=== PATIENT | female | born 1970 | race Two or more races ===

== ENCOUNTER 2017-08-04 08:08 | Emergency (ER) | payer MEDICAID ==
[~2017-08-04] VITALS: Ht 154.9 cm; Wt 106.1 kg
[2017-08-04 08:52] VITALS: BP 102/60
[2017-08-04] MEDS ORDERED: SILVER SULFADIAZINE 1 % TOPICAL CREAM 50GM TOP ONE (09:45)
[2017-08-04] MEDS ORDERED: IBUPROFEN 800 MG TAB PO ONE (09:45)
== END 2017-08-04 10:03 | disposition home or self-care (01) ==
LOC: ER 08:08
DX: T25.132A Burn of first degree of left toe(s) (nail), initial encounter (principal); T25.131A Burn of first degree of right toe(s) (nail), initial encounter; E11.9 Type 2 diabetes mellitus without complications; I10 Essential (primary) hypertension; E07.9 Disorder of thyroid, unspecified; X12.XXXA Contact with other hot fluids, initial encounter; Y93.89 Activity, other specified; Y92.89 Other specified places as the place of occurrence of the external cause; Y99.8 Other external cause status
CPT/HCPCS: 16000

== ENCOUNTER 2020-12-28 17:03 | Inpatient (IN) | payer MEDICAID ==
[~2020-12-28] VITALS: Ht 165.1 cm; Wt 158.6 kg
[2020-12-28] MEDS ORDERED: PROPOFOL 100 ML IV ONE (17:16)
[2020-12-28] MEDS ORDERED: PROPOFOL 100 ML IV SCH (17:30)
[2020-12-28 17:52] LABS: Urine Bacteria NONE SEEN /hpf (None Seen); Urine Blood Negative /uL (Negative); Urine Mucus FEW (None Seen); Urine Specific Gravity 1.029 (1.001-1.035); Urine WBC 2 /hpf (0 - 5)
[2020-12-28 18:08] LABS: Alcohol, Urine < 3.0 mg/dL (0-10); Amphetamine Screen, Urine NEGATIVE (NEGATIVE); Barbiturate Scree,Urine NEGATIVE (NEGATIVE); Benzodiazephine Screen, Urine NEGATIVE (NEGATIVE); Cannabinoid Screen, Urine NEGATIVE (NEGATIVE); Opiate Scree,Urine POSITIVE (NEGATIVE); Phencyclidine Screen, Urine NEGATIVE (NEGATIVE)
[2020-12-28 18:12] LABS: Eosinophils # (auto) 0 10 ^3/uL (0-0.8); Monocytes # (auto) 0.3 10 ^3/uL (0-1.3); Red Blood Cells 4.19 10^6/uL (4.0-5.20)
[2020-12-28 18:14] LABS: Basophils # (auto) 0.1 10 ^3/uL (0-0.2); Basophils % (auto) 0.8 % (0.0-2.0); Eosinophils % (auto) 0.2 % (0.0-7.0); Hematocrit 30.4 % (36.0-46.0); Hemoglobin 9.3 g/dL (12.2-16.2); Lymphocytes % (auto) 14.6 % (10.0-50.0); Mean Corpuscular Hemoglobin 22.3 pg (28.0-32.0); Mean Corpuscular Hgb Conc. 30.8 g/dL (32.0-36.0); Mean Corpuscular Volume 72.4 fL (80.0-100.0); Monocytes % (auto) 4.9 % (0.0-12.0); Neutrophils # (auto) 5.2 10 ^3/uL (1.6-8.6); Neutrophils % (auto) 79.5 % (37.0-80.0); Red Cell Distribution Width 17.3 % (11.8-14.3); White Blood Cell 6.6 10^3/uL (4.4-10.8)
[2020-12-28] MEDS ORDERED: NOREPINEPHRINE 8 MG/250ML KIT 250 ML IV SCH (18:15)
[2020-12-28 18:16] LABS: Cocaine Screen, Urine NEGATIVE (NEGATIVE)
[2020-12-28 18:25] LABS: Alanine Aminotransferase 19 U/L (13-56); Albumin 3.4 g/dL (3.4-5.0); Anion Gap 7 (5-15); Aspartate Aminotransferase 18 U/L (15-37); BUN/Creatinine Ratio 28.9; Blood Alcohol < 3.0 mg/dL (0-5); Blood Urea Nitrogen 13 mg/dL (7-18); Calcium 7.4 mg/dL (8.5-10.1); Carbon Dioxide 23 mmol/L (21-32); Chloride 109 mmol/L (98-107); GFR African American 190 mL/min; GFR Non-African American 157 mL/min; Glucose 131 mg/dL (74-106); Magnesium 1.8 mg/dL (1.6-2.6); Potassium 3.9 mmol/L (3.5-5.1); Sodium 139 mmol/L (136-145)
[2020-12-28 18:28] LABS: Alkaline Phosphatase 107 U/L (45-117); Bilirubin, Total 0.3 mg/dL (0.2-1.0); Total Protein 6.5 g/dL (6.4-8.2)
[2020-12-28 18:39] LABS: Salicylate < 1.7 mg/dL (2.8-20.0)
[2020-12-28 18:55] LABS: Acetaminophen 44.5 ug/mL (10-30)
[2020-12-28] MEDS: MIDAZOLAM DRIP 50 mg/50mL 50 ML IV SCH (19:07)
[2020-12-28] MEDS ORDERED: ETOMIDATE (2MG/ML) 20ML VIAL IV ONE (20:15)
[2020-12-28] MEDS ORDERED: SUCCINYLCHOLINE CHLORIDE 20 MG/ML 10ML VIAL IV ONE (20:15)
[2020-12-28 21:44] VITALS: BP 122/76
[2020-12-28] MEDS ORDERED: ACETYLCYSTEINE PO FOR APAP TOX 200 MG/ML ML PO ONE (22:30)
[2020-12-28 23:15] VITALS: BP 122/76
[2020-12-28] MEDS ORDERED: MORPHINE SULF INJ 2 MG/ML SYRINGE 1ML IV PRN (23:15)
[2020-12-28] MEDS ORDERED: ONDANSETRON HCL 4 MG/2 ML VIAL IV PRN (23:15)
[2020-12-28] MEDS ORDERED: SODIUM CHLORIDE 0.9% 2,000 ML IV ONE (23:15)
[2020-12-28] MEDS ORDERED: DEXTROSE (50%) 50ML SYRG IV PRN (23:15)
[2020-12-28] MEDS ORDERED: ACETYLCYSTEINE 200MG/ML IV SOL 15,000 MG in D5W 5% 250 ML IV ONE (23:15)
[2020-12-28] MEDS ORDERED: NITROGLYCERIN 0.4 MG SL TAB SL PRN (23:15)
[2020-12-29] VITALS (8 sets, daily range): BP systolic 109–159; BP diastolic 68–83
[2020-12-29 00:12] LABS: INR 0.98 (0.9-1.15)
[2020-12-29 00:15] LABS: Albumin 3.2 g/dL (3.4-5.0); BUN/Creatinine Ratio 23.9; Calcium 7.6 mg/dL (8.5-10.1); Potassium 3.5 mmol/L (3.5-5.1)
[2020-12-29 00:17] LABS: Bilirubin, Total 0.3 mg/dL (0.2-1.0); Total Protein 6.4 g/dL (6.4-8.2)
[2020-12-29] MEDS ORDERED: ACETYLCYSTEINE PO FOR APAP TOX 200 MG/ML ML ONE (00:28)
[2020-12-29] MEDS ORDERED: ACETYLCYSTEINE 6GM/30ml (200mg/ml) IV SOLN 30ML IV ONE (00:52)
[2020-12-29] MEDS ORDERED: ACETYLCYSTEINE 200MG/ML IV SOL 5,000 MG in D5W 5% 500 ML IV ONE (02:00)
[2020-12-29 02:16] LABS: Magnesium 1.9 mg/dL (1.6-2.6)
[2020-12-29] MEDS ORDERED: ACETYLCYSTEINE 200MG/ML IV SOL 10,000 MG in D5W 5% 1,000 ML IV ONE (06:00)
[2020-12-29] MEDS: InsuLIN REG 1unit/0.01ml Soln (100units/ml) SC SCH ×4 (06:00→17:09)
[2020-12-29] MEDS: ACCU-CHEK COMFORT CURVE STRIP VI SCH ×4 (06:11→17:09)
[2020-12-29 06:16] LABS: INR 1.03 (0.9-1.15)
[2020-12-29 06:31] LABS: Albumin 2.4 g/dL (3.4-5.0); Anion Gap 9 (5-15); Blood Urea Nitrogen 8 mg/dL (7-18); Calcium 7.1 mg/dL (8.5-10.1); Carbon Dioxide 26 mmol/L (21-32); Chloride 108 mmol/L (98-107); Glucose 185 mg/dL (74-106); Potassium 3.3 mmol/L (3.5-5.1); Sodium 143 mmol/L (136-145)
[2020-12-29 06:39] LABS: Alanine Aminotransferase 26 U/L (13-56); Alkaline Phosphatase 82 U/L (45-117); Aspartate Aminotransferase 14 U/L (15-37); Bilirubin, Total 0.3 mg/dL (0.2-1.0); GFR African American 206 mL/min; GFR Non-African American 170 mL/min; Total Protein 5.6 g/dL (6.4-8.2)
[2020-12-29 07:16] LABS: Basophils # (auto) 0.1 10 ^3/uL (0-0.2); Basophils % (auto) 0.8 % (0.0-2.0); Eosinophils # (auto) 0.1 10 ^3/uL (0-0.8); Eosinophils % (auto) 0.7 % (0.0-7.0); Hematocrit 29.9 % (36.0-46.0); Hemoglobin 9.4 g/dL (12.2-16.2); Lymphocytes # (auto) 2.7 10 ^3/uL (0.4-5.4); Lymphocytes % (auto) 26.6 % (10.0-50.0); Mean Corpuscular Hemoglobin 22.4 pg (28.0-32.0); Mean Corpuscular Hgb Conc. 31.4 g/dL (32.0-36.0); Mean Corpuscular Volume 71.4 fL (80.0-100.0); Monocytes # (auto) 1.1 10 ^3/uL (0-1.3); Monocytes % (auto) 10.6 % (0.0-12.0); Neutrophils # (auto) 6.2 10 ^3/uL (1.6-8.6); Neutrophils % (auto) 61.3 % (37.0-80.0); Nucleated Red Blood Cells % 0.1 %; Red Blood Cells 4.18 10^6/uL (4.0-5.20); White Blood Cell 10.1 10^3/uL (4.4-10.8)
[2020-12-29] MEDS ORDERED: ATOR20TA50 PO (09:48)
[2020-12-29] MEDS ORDERED: CETI-120 PO (09:48)
[2020-12-29] MEDS ORDERED: METF-869 PO (09:48)
[2020-12-29] MEDS: PANTOPRAZOLE 40 MG/10 ML VIAL INJ IV SCH (09:51)
[2020-12-29] MEDS: MIDAZOLAM DRIP 50 mg/50mL 50 ML IV SCH (09:54)
[2020-12-29] MEDS ORDERED: ENOXAPARIN SOD 40 MG/0.4 ML SYRINGE SC SCH ×2 (10:00→22:00)
[2020-12-29] MEDS ORDERED: LEVO50TA7 PO (10:04)
[2020-12-29] MEDS ORDERED: LISI2.5T47 PO (10:04)
[2020-12-29] MEDS: D5W/SOD CHL 0.45% 1,000 ML IV SCH (17:04)
[2020-12-30] MEDS: ACCU-CHEK COMFORT CURVE STRIP VI SCH ×5 (01:00→23:51)
[2020-12-30] MEDS: InsuLIN REG 1unit/0.01ml Soln (100units/ml) SC SCH ×5 (01:00→23:51)
[2020-12-30] MEDS: D5W/SOD CHL 0.45% 1,000 ML IV SCH ×3 (03:45→21:36)
[2020-12-30] MEDS: LEVOTHYROXINE SODIUM 50 MCG TAB PO SCH (07:35)
[2020-12-30 07:40] LABS: Basophils # (auto) 0.1 10 ^3/uL (0-0.2); Eosinophils # (auto) 0.1 10 ^3/uL (0-0.8); Lymphocytes # (auto) 1.8 10 ^3/uL (0.4-5.4); Lymphocytes % (auto) 21.3 % (10.0-50.0); Mean Corpuscular Volume 71.9 fL (80.0-100.0); Monocytes # (auto) 0.6 10 ^3/uL (0-1.3); Neutrophils # (auto) 5.8 10 ^3/uL (1.6-8.6); White Blood Cell 8.4 10^3/uL (4.4-10.8)
[2020-12-30 07:42] LABS: Basophils % (auto) 0.7 % (0.0-2.0); Eosinophils % (auto) 1.1 % (0.0-7.0); Hematocrit 28.1 % (36.0-46.0); Mean Corpuscular Hemoglobin 22.9 pg (28.0-32.0); Mean Corpuscular Hgb Conc. 31.9 g/dL (32.0-36.0); Monocytes % (auto) 7.7 % (0.0-12.0); Neutrophils % (auto) 69.2 % (37.0-80.0); Red Blood Cells 3.91 10^6/uL (4.0-5.20); Red Cell Distribution Width 16.7 % (11.8-14.3)
[2020-12-30 07:46] LABS: INR 1.01 (0.9-1.15); Partial Thromboplastin Time 25.7 sec (23.6-33.0)
[2020-12-30 07:50] LABS: Albumin 2.4 g/dL (3.4-5.0); Calcium 7.6 mg/dL (8.5-10.1); Potassium 3.1 mmol/L (3.5-5.1)
[2020-12-30 07:54] LABS: BUN/Creatinine Ratio 9.5; Bilirubin, Total 0.5 mg/dL (0.2-1.0); Total Protein 5.9 g/dL (6.4-8.2)
[2020-12-30 09:00] VITALS: BP 109/59
[2020-12-30] MEDS: PANTOPRAZOLE 40 MG/10 ML VIAL INJ IV SCH (10:25)
[2020-12-30] MEDS: ENOXAPARIN SOD 40 MG/0.4 ML SYRINGE SC SCH (10:27)
[2020-12-30] MEDS ORDERED: POTASSIUM CHL 20 Meq TABLET PO ONE (12:30)
[2020-12-30 13:00] VITALS: BP 107/64
[2020-12-30] MEDS: IBUPROFEN 600 MG TAB PO PRN (14:58)
[2020-12-30 17:00] VITALS: BP 109/61
[2020-12-30 20:00] VITALS: BP 107/64
[2020-12-30] MEDS: ATORVASTATIN 20 MG TAB PO SCH (21:37)
[2020-12-30 22:00] VITALS: BP 107/64
[2020-12-31 05:00] VITALS: BP 104/62
[2020-12-31] MEDS: IBUPROFEN 600 MG TAB PO PRN ×2 (05:46→22:31)
[2020-12-31] MEDS: ACCU-CHEK COMFORT CURVE STRIP VI SCH ×3 (05:47→18:15)
[2020-12-31] MEDS: InsuLIN REG 1unit/0.01ml Soln (100units/ml) SC SCH ×3 (05:47→18:00)
[2020-12-31] MEDS: LEVOTHYROXINE SODIUM 50 MCG TAB PO SCH (06:17)
[2020-12-31] MEDS: D5W/SOD CHL 0.45% 1,000 ML IV SCH ×2 (06:47→18:19)
[2020-12-31 09:00] VITALS: BP 113/75
[2020-12-31] MEDS: PANTOPRAZOLE 40 MG/10 ML VIAL INJ IV SCH (10:56)
[2020-12-31] MEDS: FLUoxetine HCL 10 MG CAP PO SCH (10:57)
[2020-12-31] MEDS: ENOXAPARIN SOD 40 MG/0.4 ML SYRINGE SC SCH (10:57)
[2020-12-31 13:00] VITALS: BP 124/70
[2020-12-31] MEDS: GABAPENTIN 100 MG CAP PO SCH ×2 (14:45→22:29)
[2020-12-31 17:00] VITALS: BP 141/90
[2020-12-31 20:00] VITALS: BP 115/68
[2020-12-31] MEDS: ATORVASTATIN 20 MG TAB PO SCH (22:29)
[2021-01-01] MEDS: ACCU-CHEK COMFORT CURVE STRIP VI SCH ×5 (00:12→22:00)
[2021-01-01] MEDS: D5W/SOD CHL 0.45% 1,000 ML IV SCH (03:59)
[2021-01-01] MEDS: InsuLIN REG 1unit/0.01ml Soln (100units/ml) SC SCH ×5 (06:00→22:00)
[2021-01-01] MEDS: GABAPENTIN 100 MG CAP PO SCH ×3 (06:30→22:00)
[2021-01-01] MEDS: LEVOTHYROXINE SODIUM 50 MCG TAB PO SCH (06:31)
[2021-01-01 08:00] VITALS: BP 102/61
[2021-01-01] MEDS: PANTOPRAZOLE 40 MG/10 ML VIAL INJ IV SCH (08:57)
[2021-01-01] MEDS: FLUoxetine HCL 10 MG CAP PO SCH (08:57)
[2021-01-01] MEDS: ENOXAPARIN SOD 40 MG/0.4 ML SYRINGE SC SCH (08:58)
[2021-01-01 09:00] VITALS: BP 102/61
[2021-01-01] MEDS ORDERED: DEXTROSE (50%) 50ML SYRG IV PRN (11:00)
[2021-01-01 13:00] VITALS: BP 127/77
[2021-01-01 17:00] VITALS: BP 108/68
[2021-01-01 22:00] VITALS: BP 110/63
[2021-01-01] MEDS: ATORVASTATIN 20 MG TAB PO SCH (22:00)
[2021-01-02 05:30] VITALS: BP 110/65
[2021-01-02] MEDS: GABAPENTIN 100 MG CAP PO SCH ×2 (06:58→13:54)
[2021-01-02] MEDS: InsuLIN REG 1unit/0.01ml Soln (100units/ml) SC SCH ×3 (07:00→17:00)
[2021-01-02] MEDS: LEVOTHYROXINE SODIUM 50 MCG TAB PO SCH (07:03)
[2021-01-02] MEDS: ACCU-CHEK COMFORT CURVE STRIP VI SCH ×3 (07:03→17:00)
[2021-01-02] MEDS: PANTOPRAZOLE 40 MG/10 ML VIAL INJ IV SCH (08:36)
[2021-01-02] MEDS: ENOXAPARIN SOD 40 MG/0.4 ML SYRINGE SC SCH (08:36)
[2021-01-02] MEDS: FLUoxetine HCL 10 MG CAP PO SCH (08:36)
[2021-01-02 09:00] VITALS: BP 107/61
[2021-01-02 17:00] VITALS: BP 118/76
[2021-01-02] MEDS ORDERED: FLUO1TAB14 PO (18:43)
[2021-01-02] MEDS ORDERED: GABA100C9 PO (18:43)
== END 2021-01-02 20:35 | disposition home or self-care (01) | DRG 812 ==
LOC: EDBD 17:03 → ER 17:03 → TELE 23:28 → TELE-WESTW 12-30 08:11 → WEST WING 12-31 09:01
PROVIDERS: ADMIT Hospitalist; ATTEND Hospitalist
PROC: 5A1935Z Respiratory Ventilation, Less than 24 Consecutive Hours (ICD-10-PCS; principal; 2020-12-28)
PROC: 0BH17EZ Insertion of Endotracheal Airway into Trachea, Via Natural or Artificial Opening (ICD-10-PCS; 2020-12-28)
DX: T50.904A Poisoning by unspecified drugs, medicaments and biological substances, undetermined, initial encounter (principal); J96.01 Acute respiratory failure with hypoxia; T39.1X2A Poisoning by 4-Aminophenol derivatives, intentional self-harm, initial encounter; I10 Essential (primary) hypertension; E11.9 Type 2 diabetes mellitus without complications; Z20.822 Contact with and (suspected) exposure to COVID-19; E66.2 Morbid (severe) obesity with alveolar hypoventilation; G89.4 Chronic pain syndrome; J98.11 Atelectasis; T39.1X1A Poisoning by 4-Aminophenol derivatives, accidental (unintentional), initial encounter; Z79.899 Other long term (current) drug therapy; Z83.3 Family history of diabetes mellitus; Z79.891 Long term (current) use of opiate analgesic; Z79.01 Long term (current) use of anticoagulants; Z56.0 Unemployment, unspecified
CPT/HCPCS: 31500; 36415; 36556; 36600; 70450; 71045; 80053; 80307; 80320; 80329; 81001; 81025; 82550; 82805; 82962; 83605; 83735; 84439; 84443; 84484; 85025; 85610; 85730; 87070; 87205; 87426; 93005; 93306; 94002; 94003; 96361; 96365; 96366; 96367; 96375; 99291; A4618; C9113; G0378; J1815; J2250; J2704; J7042; J7060

== ENCOUNTER → 2023-07-12 | Outpatient (CLI) | payer MEDICAID ==
[~2023-07-12] MED LIST: ATOR20TA50 PO; CETI-120 PO; FLUO1TAB14 PO; GABA-1308 PO; LEVO50TA7 PO; LISI2.5T47 PO; METF-869 PO
== END | disposition home or self-care (01) ==
LOC: Rad HDHVI 14:32
PROVIDERS: ATTEND Internal Medicine Cardiovascular Disease
DX: Z01.818 Encounter for other preprocedural examination (principal); I51.7 Cardiomegaly
CPT/HCPCS: 93306

== ENCOUNTER → 2023-07-18 | Outpatient (CLI) | payer MEDICAID ==
[~2023-07-18] VITALS: Ht 154.9 cm; Wt 113.4 kg
[~2023-07-18] MED LIST changes: +ADENOSINE 90 MG/30 ML INJ IV ONE; +ADENOSINE 95 MG in GIVE UN-DILUTED 0 ML IV ONE
== END | disposition home or self-care (01) ==
LOC: Rad HDHVI 08:04
PROVIDERS: ATTEND Internal Medicine Cardiovascular Disease
DX: Z01.810 Encounter for preprocedural cardiovascular examination (principal); I10 Essential (primary) hypertension; E11.9 Type 2 diabetes mellitus without complications; E78.00 Pure hypercholesterolemia, unspecified; Z79.84 Long term (current) use of oral hypoglycemic drugs; Z79.899 Other long term (current) drug therapy
CPT/HCPCS: 78452; 93005; 96374; 96375; A9500; J0153

== ENCOUNTER 2024-12-30 17:42 | Emergency (ER) | payer MEDICAID ==
[~2024-12-30] VITALS: Ht 154.9 cm; Wt 105.0 kg
[~2024-12-30 17:42] MED LIST changes: -ADENOSINE 90 MG/30 ML INJ IV ONE; -ADENOSINE 95 MG in GIVE UN-DILUTED 0 ML IV ONE
[2024-12-30 17:47] VITALS: TEMP 98.3
[2024-12-30 18:45] VITALS: BP 130/80; PULSE 67; RESP 18; O2SAT 96
[2024-12-30] MEDS ORDERED: ACET500T58 PO (18:58)
--- NOTE | 2024-12-30 18:58 | ED.PDOC ---
Musculoskeletal HPI Comments 54 year old female presents to ER with complaints of right foot pain x two days. Patient reports 9/10 right foot pain s/p accidentally hitting her right foot against the corner of a door 2 days ago. Denies use of medications for current symptoms and presents to ER ambulatory on arrival, with steady gait, in no distress. Denies numbness/tingling, right ankle pain, skin changes or any further symptoms/complaints Chief Complaint: Lower Extremity Time Seen by MD: 18:23 Primary Care Provider: DELROY Reviewed Notes: Nurses Notes, Medications, Allergies Allergies: Coded Allergies: NO KNOWN ALLERGIES (Unverified , 12/22/15) Home Meds Active Scripts Acetaminophen (Acetaminophen) 500 Mg Tab, 500 MG PO Q4HPRN, #30 TAB 0 Refills Prov:CADY PEÑA 12/30/24 Gabapentin (Gabapentin) 100 Mg Cap, 2 CAP PO TID, #90 CAP 1 Refill Prov:LOVE RESENDEZ MD 01/02/21 Fluoxetine HCl (Pmdd) (Fluoxetine HCl) 20 Mg Tab, 20 MG PO DAILY, #30 TAB Prov:LOVE RESENDEZ MD 01/02/21 Reported Medications Lisinopril (Lisinopril) 2.5 Mg Tab, 2.5 MG PO DAILY 12/29/20 Levothyroxine Sodium (Levothyroxine Sodium) 50 Mcg Tab, 50 MCG PO QAM TAKE 1 TABLET BY MOUTH EVERY MORNING BEFORE BREAKFAST 12/29/20 Atorvastatin Calcium (ATORVASTATIN CALCIUM) 20 Mg Tab, 20 MG PO DAILY 12/29/20 Cetirizine HCl (Cetirizine Hydrochloride) 10 Mg Tab, 10 MG PO DAILY 12/29/20 Metformin Hydrochloride (Metformin Hydrochloride) 500 Mg Tab, 500 MG PO BID 12/29/20 Information Source: Patient Mode of Arrival: Ambulatory Past Medical History PAST MEDICAL HISTORY: DM, HTN, Thyroid Surgical History: Denies all surgeries INFORMATION SYSTEMS MANAGER History: No Pertinent INFORMATION SYSTEMS MANAGER History Family History Family History: Unknown Social History Smoker: Non-Smoker Alcohol: Denies ETOH Use Drugs: Denies Drug Use Lives In: Home Constitutional: denies: chills, diaphoresis, fatigue, fever, malaise, sweats, weakness, others EENTM: denies: blurred vision, double vision, ear bleeding, ear discharge, ear drainage, ear pain, ear ringing, eye pain, eye redness, hearing loss, mouth pain, mouth swelling, nasal discharge, nose bleeding, nose congestion, nose pain, photophobia, tearing, throat pain, throat swelling, voice changes, others Respiratory: denies: cough, hemoptysis, orthopnea, SOB at rest, shortness of breath, SOB with excertion, stridor, wheezing, others Cardiovascular: denies: chest pain, dizzy spells, diaphoresis, Dyspnea on exe rtion, edema, irregular heart beat, left arm pain, lightheadedness, palpitations, PND, syncope, others Gastrointestinal: denies: abdomen distended, abdominal pain, blood streaked bowels, constipated, diarrhea, dysphagia, difficulty swallowing, hematemesis, melena, nausea, poor appetite, poor fluid intake, rectal bleeding, rectal pain, vomiting, others Genitourinary: denies: abnormal vagina bleeding, burning, dyspareunia, dysuria, flank pain, frequency, hematuria, incontinence, pain, , vagina discharge, urgency, others Neurological: denies: dizziness, fainting, headache, left sided numbness, left sided weakness, numbness, paresthesia, pre-existing deficit, right sided numbness, right sided weakness, seizure, speech problems, tingling, tremors, weakness, others Musculoskeletal: reports: others (As stated in HPI) Integumetry: denies: bruises, change in color, change in hair/nails, dryness, laceration, lesions, lumps, rash, wounds, others Allergic/Immunocompromised: denies: Difficulty Healing, Frequent Infections, Hives, Itching, others Hematologic/Lymphatic: denies: anemia, blood clots, easy bleeding, easy bruising, swollen glands, others Endocrine: denies: excessive hunger, excessive sweating, excessive thirst, excessive urination, flushing, intolerance to cold, intolerance to heat, unexplained weight gain, unexplained weight loss, others Psychiatric: denies: anxiety, bipolar disorder, depression, hopeless, panic di sorder, schizophrenia, sleepless, suicidal, others Physical Exam General Appearance: No Apparent Distress HEENT: PERRL/EOMI Neck: Full Range of Motion, Non-Tender, Normal Respiratory: Chest Non-Tender, Lungs Clear, No Accessory Muscle Use, No Respiratory Distress, Normal Breath Sounds Cardiovascular: No Murmur, No Gallop, Regular Rate/Rhythm Breast Exam: Deferred Gastrointestinal: NOT DONE Genitalia: Deferred Pelvic: Deferred Rectal: Deferred Extremities: Normal capillary refill, Normal range of motion Musculoskeletal : Extremity Location: Foot (TTP noted to right 2nd-4th toes. No skin changes/nailbed injury/deformity appreciated. No TTP to right ankle noted. Pulses intact. Steady gait noted) Neurologic: Alert, No Motor Deficits, Normal Affect, Normal Mood, No Sensory Deficits Cerebellar Function: Normal Reflexes: Normal Skin: Dry, Warm Peripheral Pulses: 2+ dorsalis pedis (R), 2+ dorsalis pedis (L) Lymphatic: No Adenopathy Was a procedure done? Was a procedure done?: No Sedation Sedation?: No Differential Diagnosis EXT Differential Diagnosis: Fracture, Dislocation, Neurovascular injury X-Ray, Labs, Meds, VS Vital Signs Date Time Temp Pulse Resp B/P (MAP) Pulse Ox O2 Delivery O2 Flow Rate FiO2 12/30/24 18:45 67 18 130/80 (97) 96 12/30/24 18:45 67 18 96 Room Air 12/30/24 17:47 98.3 75 20 124/75 95 98.3 PATIENT: MARIA ESTHER SYKESACCT: [id number] UNIT: [id number] : 1970 LOC: ER ROOM / BED: / AGE / SEX: 54 / F ADM STATUS: REG ER SERVICE 49 ORDERING PHYSICIAN: CADY PEÑA PROCEDURE(s): RFOOT - R FOOT 3 VIEW XRAY REASON: right foot pain ORDER NUMBER(s): [id number], ACCESSION NUMBER(s): [id number] CLINICAL INDICATION: right foot pain TECHNIQUE: 3 radiographic views of the right foot were obtained. Comparison: None FINDINGS/IMPRESSION: Pes planus. Plantar calcaneal enthesophyte. ATED BY: PATY TRAORE Jr., DO DICTATED DATE/TIME: 12/30/241915 SIGNED BY: PATY TRAORE Jr., SIGNED DATE/TIME: 12/30/241915 CC: Right foot x-ray reviewed Advised on elevation and alternate ice on/off as needed for pain Advised to follow up with PCP in 1-2 days Patient verbalized understanding and agreeable with current plan of care Advised to return to ER immediately if symptoms worsen Images Reviewed?: Images reviewed and evaluated by me Time of 1ST Reevaluation: 18:34 Reevaluation 1ST: N/A Patient Education/Counseling: Diagnosis, Treatment, Prognosis, Need For Follow Up Family Education/Counseling: No Family Present Departure 1 Departure Time of Disposition: 18:52 Impression: Primary Impression: Contusion, toes Qualified Codes: S90.121A - Contusion of right lesser toe(s) without damage to nail, initial encounter Disposition: HOME / SELF CARE / HOMELESS Condition: Stable e-Prescriptions Acetaminophen (Acetaminophen) 500 Mg Tab 500 MG PO Q4HPRN, #30 TAB 0 Refills Prov: CADY PEÑA 12/30/24 Discharged With: Self Critical Care Note Critical Care Time?: No Stability Stability form required: No Heart Score Heart Score: Heart Score Response (Comments) Value History N/A 0 EKG N/A 0 Age N/A 0 Risk Factors N/A 0 Troponin N/A 0 Total 0 CADY PEÑA Dec 30, 2024 18:58
--- NOTE | 2024-12-30 19:18 | DVH ---
CLINICAL INDICATION: right foot pain TECHNIQUE: 3 radiographic views of the right foot were obtained. Comparison: None FINDINGS/IMPRESSION: Pes planus. Plantar calcaneal enthesophyte.
== END 2024-12-30 19:36 | disposition home or self-care (01) ==
LOC: ER 17:42
DX: S90.121A Contusion of right lesser toe(s) without damage to nail, initial encounter (principal); I10 Essential (primary) hypertension; E11.9 Type 2 diabetes mellitus without complications; Z79.899 Other long term (current) drug therapy; Z79.890 Hormone replacement therapy; W22.8XXA Striking against or struck by other objects, initial encounter; Y93.89 Activity, other specified; Y92.098 Other place in other non-institutional residence as the place of occurrence of the external cause; Y99.8 Other external cause status
CPT/HCPCS: 73630